=== PATIENT | male | born 1990 | race Caucasian/White ===

== ENCOUNTER 2021-02-22 14:00 | Emergency (ER) | payer SELFPAY ==
[~2021-02-22 14:00] MED LIST: BENTYL10 MG PO; CLARITIN10 MG PO; COZAAR100 MG PO; GABAPENTIN300 MG PO; HCTZ12.5 MG PO; ONDANSETRON ODT4 MG SL; PANTOPRAZOLE SO40 MG PO; PAROXETINE 10MG10 MG PO; SUMATRIPTAN SUC50 MG PO
[2021-02-22] MEDS ORDERED: AMOXICILLIN500 M2 PO (16:25)
== END 2021-02-22 16:30 | disposition home or self-care (01) ==
LOC: FER 14:00
DX: H66.92 Otitis media, unspecified, left ear (principal); I10 Essential (primary) hypertension
CPT/HCPCS: 99282

== ENCOUNTER 2021-10-19 11:55 | Emergency (ER) | payer SELFPAY ==
[~2021-10-19 11:55] MED LIST changes: +AMOXICILLIN500 M2 PO
[2021-10-19] MEDS ORDERED: NAPROXEN500 MG PO (13:11)
== END 2021-10-19 13:48 | disposition home or self-care (01) ==
LOC: FER 11:55
DX: M77.8 Other enthesopathies, not elsewhere classified (principal); I10 Essential (primary) hypertension; F17.210 Nicotine dependence, cigarettes, uncomplicated; Z88.0 Allergy status to penicillin; X58.XXXA Exposure to other specified factors, initial encounter; Y92.89 Other specified places as the place of occurrence of the external cause; Y99.0 Civilian activity done for income or pay
CPT/HCPCS: 73030; 96372; J1100; J1885

== ENCOUNTER 2021-11-21 23:17 | Emergency (ER) | payer OTHER ==
[~2021-11-21 23:17] MED LIST changes: +NAPROXEN500 MG PO
[2021-11-21 23:50] LABS: BASOPHIL 0.5 % (0-2); EOSINOPHIL 3.4 % (0-5); HCT 41.8 % (42.0-52.0); HGB 14.5 g/dl (13.2-18.0); LYMPHOCYTE 28.2 % (15-48); MCH 30.9 pg (25.0-31.0); MCHC 34.7 g/dL (32.0-36.0); MCV 88.9 fL (78.0-100.0); MONOCYTE 9.2 % (0-12); MPV 9.1 fL (6.0-9.5); NEUTROPHIL 58.3 % (41-80); NRBC 0; PLT 259 K/uL (150-400); RDW 12.4 % (11.5-14.0); WBC 7.7 K/uL (4.0-10.5)
[2021-11-22 00:05] LABS: ALBUMIN 3.9 g/dL (3.4-5.0); BILIRUBIN - TOTAL 0.3 mg/dL (0.2-1.0); BUN/CREAT RATIO (CALC) 13.7 RATIO; CREATININE 1.02 mg/dL (0.67-1.17); GLOBULIN (CALCULATION) 3.1 g/dL; POTASSIUM 4.1 mmol/L (3.5-5.1)
[2021-11-22 00:49] LABS: CORONAVIRUS 2019 SARS-COV-2 NEGATIVE (NEGATIVE); INFLUENZA A NAA NEGATIVE (NEGATIVE)
[2021-11-22] MEDS ORDERED: NORCO 5-325 TA1 EACH PO (02:16)
[2021-11-22] MEDS ORDERED: NAPROXEN500 MG PO (02:16)
== END 2021-11-22 02:31 | disposition home or self-care (01) ==
LOC: FER 23:17
PROVIDERS: Internal Medicine
DX: R07.89 Other chest pain (principal); R20.2 Paresthesia of skin; I25.2 Old myocardial infarction; F17.210 Nicotine dependence, cigarettes, uncomplicated; Z88.0 Allergy status to penicillin; Z20.822 Contact with and (suspected) exposure to COVID-19
CPT/HCPCS: 36415; 71045; 72125; 80053; 84145; 84484; 85025; 93005; J2270; J2405; U0002